=== PATIENT | male | born 1950 | race Caucasian/White ===

== ENCOUNTER 2023-07-26 07:09 | Outpatient (CLI) | payer MEDICARE, OTHER ==
[2023-07-26 15:11] LABS: HCT - HEMATOCRIT 40.9 % (42.0-52.0); HGB - HEMOGLOBIN 12.9 g/dL (14.0-18.0); MEAN CORPUSCULAR HEMOGLOBIN 31.9 pg (27.0-31.0); MEAN CORPUSCULAR HGB CONC 31.5 g/dL (32.0-36.0); MEAN CORPUSCULAR VOLUME 101.2 fL (80.0-94.0); RED BLOOD COUNT 4.04 10^6/uL (4.70-6.10); RED CELL DISTRIBUTION WIDTH 13.4 % (12.0-15.0); WHITE BLOOD COUNT 4.5 x10^3/uL (4.8-10.8)
[2023-07-26 15:34] LABS: CREATININE,URINE 91.1 mg/dL; PROTEIN/CREATININE RATIO,URINE 0.1 (<=0.2)
[2023-07-26 15:55] LABS: ALBUMIN 3.9 g/dL (3.2-5.5); CALCIUM 9.2 mg/dL (8.5-10.3); CREATININE 1.2 mg/dL (0.6-1.3); MAGNESIUM 1.8 mg/dL (1.7-2.3); PHOSPHORUS 3.6 mg/dL (2.5-5.0); POTASSIUM 4.1 mmol/L (3.5-4.5); URIC ACID 4.6 mg/dL (4.4-7.6)
== END 2023-07-26 07:10 | disposition home or self-care (01) ==
LOC: LAB.S 07:09
PROVIDERS: ATTEND Internal Medicine Nephrology
DX: N18.31 Chronic kidney disease, stage 3a (principal); D84.9 Immunodeficiency, unspecified
CPT/HCPCS: 36415; 80069; 80197; 82570; 83735; 83970; 84156; 84550; 85027

== ENCOUNTER 2023-11-08 06:57 | Outpatient (CLI) | payer MEDICARE, OTHER ==
[2023-11-08 15:47] LABS: HCT - HEMATOCRIT 42.3 % (42.0-52.0); HGB - HEMOGLOBIN 13.3 g/dL (14.0-18.0); MEAN CORPUSCULAR HEMOGLOBIN 30.9 pg (27.0-31.0); MEAN CORPUSCULAR HGB CONC 31.4 g/dL (32.0-36.0); MEAN CORPUSCULAR VOLUME 98.4 fL (80.0-94.0); MEAN PLATELET VOLUME 10.9 fL (7.4-11.4); RED BLOOD COUNT 4.3 10^6/uL (4.70-6.10); RED CELL DISTRIBUTION WIDTH 13.9 % (12.0-15.0); WHITE BLOOD COUNT 5.3 x10^3/uL (4.8-10.8)
[2023-11-08 16:30] LABS: ALBUMIN 3.9 g/dL (3.2-5.5)
[2023-11-08 16:36] LABS: CALCIUM 9.3 mg/dL (8.5-10.3); PHOSPHORUS 3.2 mg/dL (2.5-5.0); POTASSIUM 4.2 mmol/L (3.5-4.5)
== END 2023-11-08 06:58 | disposition home or self-care (01) ==
LOC: LAB.S 06:57
PROVIDERS: ATTEND Internal Medicine Nephrology
DX: N18.31 Chronic kidney disease, stage 3a (principal); Z94.0 Kidney transplant status; D84.9 Immunodeficiency, unspecified
CPT/HCPCS: 36415; 80069; 80197; 85027